=== PATIENT | female | born 1985 | race Caucasian/White ===

== ENCOUNTER 2017-05-09 22:59 | Emergency (ER) | payer OTHER ==
[~2017-05-09] VITALS: Ht 154.9 cm; Wt 68.0 kg
[~2017-05-09 22:59] MED LIST: ADDERALL 20 MG20 MG PO; CLONAZEPAM1 M2 PO; DEXTROAMP-AMPHE20 MG PO; FLUOXETINE HCL60 MG PO; GABAPENTIN400 M2 PO; HYDROXYZINE HCL50 M1 PO; NEURONTIN400 M1 PO; VISTARIL50 M1 PO
--- NOTE | 2017-05-10 01:20 | ED GENERAL ADULT ---
History of Present Illness General Chief Complaint: Syncope and Near-Syncope Stated Complaint: BIBA ?SYNCOPAL EPISODE, ?CYST ON BACK OF NECK Source: patient, old records, friend Exam Limitations: no limitations Vital Signs & Intake/Output Vital Signs & Intake/Output Vital Signs Date Time Temp Pulse Resp B/P B/P Pulse O2 O2 Flow FiO2 Mean Ox Delivery Rate 05/10 0502 98.0 61 20 107/77 98 05/09 2314 97.0 58 18 125/86 97 Room Air ED Intake and Output 05/10 0000 05/09 1200 Intake Total Output Total Balance Patient 150 lb Weight Weight Reported by Patient Measurement Method Allergies Coded Allergies: No Known Allergies (01/04/17) Reconcile Medications Clonazepam 1 MG TABLET 1 TAB PO TID ANXIETY/PANIC ATTACK (Reported) Dextroamphetamine/Amphetamine (Adderall 20 MG Tablet) 20 MG TABLET 1 TAB PO BID ADD (Reported) Dextroamphetamine/Amphetamine (Adderall 20 MG Tablet) 20 MG TABLET 1 TAB PO BID adhd Dextroamphetamine/Amphetamine (Dextroamp-Amphetamin 20 MG Tab) 20 MG TABLET 1 TAB PO BID ADHD Doxycycline Hyclate (Vibramycin) 100 MG CAPSULE 1 CAP PO BID cellulitis Fluoxetine HCl 60 MG TABLET 1 TAB PO QAM MENTAL HEALTH (Reported) Gabapentin 400 MG CAPSULE 1 CAP PO TID NERVE PAIN (Reported) Gabapentin (Neurontin) 400 MG CAPSULE 1 CAP PO TID PRN neuropathy Gabapentin 400 MG CAPSULE 1 CAP PO TID NEUROPATHIC PAIN Hydrocodone/Acetaminophen ([place] 5-325 Tablet) 5 MG-325 MG TABLET 1-2 TAB PO Q4-6 PRN PRN severe pain Hydroxyzine Hydrochloride (Atarax) 50 MG TABLET 1 TAB PO BID PRN anxiety Hydroxyzine Pamoate (Vistaril) 50 MG CAPSULE 1 CAP PO BID ANXIETY Triage Note: PT BIBA FOR ?ABSCESS TO BACK OF HEAD X 1 DAY. Triage Nurses Notes Reviewed? yes Onset: Just prior to arrival Duration: constant, continues in ED Timing: recent history Injury Environment: home Severity: moderate, severe Modifying Factors: Improves With: medication. Worsens With: other (palpation). LMP (ages 10-50): unknown : No Patient currently breastfeeds: No HPI: Prior to admission patient noted lesion to scalp that was painful draining causing her to lose consciousness. She reports having multiple skin lesions/ abscesses. She denies fever chills nausea vomiting diarrhea abdominal pain chest pain shortness of breath headache dysuria bleeding. She is concerned because her father had intranasal abscess that spread to hid brain. Past History Travel History Traveled to [place] past 21 day No Medical History Any Pertinent Medical History? 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 No Review of Systems Review of Systems Constitutional: Reports: no symptoms. EENTM: Reports: no symptoms. Respiratory: Reports: no symptoms. Cardiovascular: Reports: no symptoms. GI: Reports: no symptoms. Genitourinary: Reports: no symptoms. Musculoskeletal: Reports: no symptoms. Skin: Reports: see HPI, rash. Neurological/Psychological: Reports: see HPI. Hematologic/Endocrine: Reports: no symptoms. Immunologic/Allergic: Reports: no symptoms. All Other Systems: Reviewed and Negative Physical Exam Physical Exam General Appearance: well developed/nourished, alert, awake, anxious, moderate distress, obese Head: atraumatic, tenderness, multiple abscesses over scalp the largest 2.5 cm at apex with drainage appearing chronic Eyes: Bilateral: normal appearance, PERRL, EOMI. Ears, Nose, Throat: normal pharynx, normal ENT inspection, hearing grossly normal Neck: normal inspection, supple, full range of motion, no midline tenderness Respiratory: normal breath sounds, chest non-tender, no respiratory distress, quiet respiration, lungs clear Cardiovascular: regular rate/rhythm, normal peripheral pulses, norml femoral pulses equa Peripheral Pulses: 4+ carotid (R), 4+ carotid (L) Gastrointestinal: normal bowel sounds, soft, non-tender, no organomegaly Back: normal inspection, normal range of motion Extremities: normal inspection, normal capillary refill, normal range of motion, no edema Neurologic/Psych: no motor/sensory deficits, awake, alert, oriented x 3, normal gait, normal mood/affect, 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 Skin: normal color, rash Lymphatic: no anterior cervical ortiz Core Measures ACS in differential dx? No CVA/TIA Diagnosis: No Sepsis Present: No Sepsis Focused Exam Completed? No Progress Differential Diagnoses I considered the following diagnoses in my evaluation of the patient: MRSA cavernous sinus thrombosis cellulitis Plan of Care: Orders Procedure Date/time Status TROPONIN LEVEL 05/10 99 Complete HUMAN BETA HCG SCREEN 05/10 99 Complete COMPREHENSIVE METABOLIC PANEL 05/10 99 Complete CBC WITHOUT DIFFERENTIAL 05/10 99 Complete Laboratory Tests 05/10/17 0118: Anion Gap 11, Estimated GFR > 60, BUN/Creatinine Ratio 13.3, Glucose 102 H, Calcium 9.6, Total Bilirubin 0.6, AST 186 H, ALT 343 H, Alkaline Phosphatase 60, Troponin I 0.02, Total Protein 7.7, Albumin 4.1, Globulin 3.6, Albumin/ Globulin Ratio 1.1, Total Beta HCG NEGATIVE, CBC w Diff NO MAN DIFF REQ, RBC 4.98, MCV 87.3, MCH 30.1, RDW 13.1, MPV 6.5 L, Gran % 67.4, Lymphocytes % 22.6, Monocytes % 7.3, Eosinophils % 1.8, Basophils % 0.9, Absolute Granulocytes 7.1 H, Absolute Lymphocytes 2.4, Absolute Monocytes 0.8 H, Absolute Eosinophils 0.2 , Absolute Basophils 0.1, PUBS MCHC 34.5 Diagnostic Imaging: Viewed by Me: CT Scan. Discussed w/RAD: CT Scan. Radiology Impression: Skin thickening with stranding in the subcutis fat and thickening of the underlying scalp soft tissues overlying the left posterior parietal convexity. No rim-enhancing fluid collection. Recommend correlation with any history of trauma. Initial ED EKG: none Departure Departure Time of Disposition: 440 Disposition: HOME OR SELF CARE Condition: Stable Clinical Impression Primary Impression: Cellulitis and abscess of head Referrals: Patient Has No Primary Care Dr (PCP/Family) Departure Forms: Customer Survey General Discharge Information RELEASE- WORK Prescriptions: Current Visit Scripts Doxycycline Hyclate (Vibramycin) 1 CAP PO BID #20 CAP Hydrocodone/Acetaminophen ([place] 5-325 Tablet) 1-2 TAB PO Q4-6 PRN PRN severe pain #20 TAB Critical Care Note Critical Care Note Critical Care Time: non-applicable
[2017-05-10 01:26] LABS: ABSOLUTE BASOPHIL COUNT 0.1 /CUMM (0.0-0.2); ABSOLUTE EOSINOPHIL COUNT 0.2 /CUMM (0.0-0.7); ABSOLUTE GRANULOCYTE CT 7.1 /CUMM (1.4-6.5); ABSOLUTE LYMPH COUNT 2.4 /CUMM (1.2-3.4); ABSOLUTE MONOCYTE COUNT 0.8 /CUMM (0.10-0.60); BASOPHIL % 0.9 % (0.0-2.0); EOSINOPHIL % 1.8 % (0-5); GRANULOCYTE % 67.4 % (42.2-75.2); HEMATOCRIT 43.5 % (37-47); MEAN CORPUSCULAR HGB 30.1 PG (27.0-31.0); MEAN CORPUSCULAR HGB CONC 34.5 G/DL (33.0-37.0); MEAN CORPUSCULAR VOLUME 87.3 FL (81.0-99.0); MEAN PLATELET VOLUME 6.5 FL (7.4-10.4); PLATELET COUNT 289 /CUMM (130-400); RBC DISTRIBUTION WIDTH 13.1 % (11.5-14.5); RED BLOOD CELL CT 4.98 /CUMM (4.20-5.40); WHITE BLOOD CELL COUNT 10.6 /CUMM (4.8-10.8)
--- NOTE | 2017-05-10 03:20 | CT SCAN REPORT ---
EXAMINATION: CT HEAD WITH CONTRAST CLINICAL INFORMATION: Scalp abscess with family history of abscess. COMPARISON: None TECHNIQUE: Contiguous axial imaging was performed from the skull base to vertex following the administration of 95 mL of Optiray 320 intravenous contrast. DLP: 676 mGy-cm FINDINGS: There is no evidence of acute intracranial hemorrhage or territorial infarction. No abnormal mass effect or midline shift is seen. Parekh to white matter differentiation is well preserved. No extra-axial fluid collections are identified. There is no abnormal enhancement. The ventricles are normal in size. There is no abnormal attenuation within the brain parenchyma. No abnormal leptomeningeal or parenchymal enhancement. There is skin thickening with stranding in the subcutaneous fat and thickening of the underlying scalp soft tissues overlying the left posterior parietal convexity. No rim-enhancing fluid collection. Underlying calvarium is unremarkable. The calvarium in general is unremarkable. The mastoid air cells are well-aerated. There is mild mucosal thickening in the left maxillary sinus. The paranasal sinuses are otherwise well-aerated. The dural venous sinuses opacify normally. IMPRESSION: Skin thickening with stranding in the subcutis fat and thickening of the underlying scalp soft tissues overlying the left posterior parietal convexity. No rim-enhancing fluid collection. Recommend correlation with any history of trauma.
[2017-05-10] MEDS ORDERED: VIBRAMYCIN100 MG PO (04:43)
[2017-05-10] MEDS ORDERED: NORCO 5-325 TA1 EACH PO (04:43)
[2017-05-10 05:02] VITALS: BP 107/77
== END 2017-05-10 05:03 ==
LOC: ERH 22:59
PROVIDERS: Emergency Medicine
DX: L03.811 Cellulitis of head [any part, except face] (principal); L02.811 Cutaneous abscess of head [any part, except face]
CPT/HCPCS: 96374; 96375; 96376

== ENCOUNTER 2017-11-14 10:54 | Emergency (ER) | payer OTHER ==
[~2017-11-14] VITALS: Ht 154.9 cm; Wt 72.6 kg
[~2017-11-14 10:54] MED LIST changes: +BACTRIM DS TAB1 EACH PO; +IBUPROFEN800 M1 PO; +NORCO 5-325 TA1 EACH PO; +PERMETHRIN60 GM TOP; +VIBRAMYCIN100 MG PO
[2017-11-14 11:08] VITALS: BP 136/94
--- NOTE | 2017-11-14 11:11 | ED SKIN/ALLERGY COMPLAINT ---
History of Present Illness General Chief Complaint: Skin Rash/ Abcess Stated Complaint: RASH ALL OVER BODY Source: patient, old records Exam Limitations: no limitations Vital Signs & Intake/Output Vital Signs & Intake/Output Vital Signs Date Time Temp Pulse Resp B/P B/P Pulse O2 O2 Flow FiO2 Mean Ox Delivery Rate 11/14 1140 Room Air 11/14 1108 97.7 66 20 136/94 100 Room Air Allergies Coded Allergies: No Known Allergies (01/04/17) Reconcile Medications Buprenorphine HCl/Naloxone HCl (Buprenorphin-Naloxon 8-2 MG Sl) 8 MG-2 MG TAB.SUBL 1.5 TAB SL DAILY MAINTENCE (Reported) Sulfamethoxazole/Trimethoprim (Bactrim Ds Tablet) 800 MG-160 MG TABLET 1 TAB PO BID rash Triage Note: PT C/O ITCHY RASH ALL OVER BODY. MOST HAVE SCABBED UP D/T ITCHING AND HER ANXIETY. Triage Nurses Notes Reviewed? yes Onset: Gradual Duration: day(s): Timing: recent history Severity: moderate Location: extremities, generalized : No Patient currently breastfeeds: No HPI: 32yo female with hx of anxiety presents to ED complaining of generalized rash beginning 3-4 days ago. Patient states she has had similar rash in the past and reports a hx of +MRSA. Patient states she was treated with bactrim for MRSA previously. Patient reports rash is very itchy, she's been itching the rash and has scabbing over the rash. Patient states she has been off her anxiety medications and believes this may be related to her rash, anxiety causes her to itch the rash. She has an appointment coming up with her psychiatrist discuss her anxiety the next few days. Patient denies sick contact, fevers, chills, vomiting. Past History Travel History Traveled to [place] past 21 day No Medical History Any Pertinent Medical History? 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 No Review of Systems Review of Systems Constitutional: Reports: no symptoms. EENTM: Reports: no symptoms. Respiratory: Reports: no symptoms. Cardiovascular: Reports: no symptoms. GI: Reports: no symptoms. Genitourinary: Reports: no symptoms. Musculoskeletal: Reports: no symptoms. Skin: Reports: see HPI. Neurological/Psychological: Reports: see HPI. Hematologic/Endocrine: Reports: no symptoms. Immunologic/Allergic: Reports: no symptoms. All Other Systems: Reviewed and Negative Physical Exam Physical Exam General Appearance: well developed/nourished, no apparent distress, alert, awake Head: atraumatic, normal appearance Eyes: Bilateral: normal appearance. Ears, Nose, Throat: hearing grossly normal Neck: normal inspection, supple, full range of motion Respiratory: no respiratory distress Back: normal inspection, normal range of motion Extremities: normal inspection, normal range of motion Neurologic/Psych: awake, alert, oriented x 3 Skin: erythematous papular rash to bilateral extremities and chest with crusting / scabs present Progress Differential Diagnosis: abscess/cellulitis, allergic reaction, contact dermatitis, drug reaction, urticaria Plan of Care: Patient was seen here at [facility] in May for a similar rash and complaint. At that time she was treated with Bactrim and reports she had resolution of the rash. Patient's rash is not consistent with abscess or cellulitis however patient does have history of previous MRSA infection. She has been checking this rash resulting in scabs and open skin. Will initiate Bactrim and outpatient follow-up with her psychiatrist as scheduled. The patient agrees with plan of care. Departure Departure Disposition: HOME OR SELF CARE Condition: Stable Clinical Impression Primary Impression: Rash Referrals: Patient Has No Primary Care Dr (PCP/Family) Additional Instructions: Take Bactrim antibiotics as prescribed. Begin Benadryl 25 mg every 6 hours for itching. Follow-up with your psychiatrist tomorrow for further evaluation of your anxiety. Return if worsening symptoms or concerns. Please note that there might be incidental findings in your evaluation that are unrelated to the current emergency department visit. Please notify your primary care doctor about this emergency department visit in order to obtain and review all of the testing performed so that these incidental findings can be monitored as needed. If you had an x-ray performed, please understand that some fractures may not be seen on the initial set of x-rays. If your symptoms persist you might need a repeat set of x-rays to check for such a fracture. If you had a laceration evaluated, please understand that foreign bodies such as glass or wood may not be visible to the naked eye or on plain x-rays. If the wound becomes red, swollen, increasingly more painful or if there is any drainage from the wound, please have it reevaluated by a physician for the possibility of a retained foreign body. If you're unable to follow up as outlined in the discharge instructions please return to the emergency department. Thank you for choosing the [facility] for your care. It was a pleasure to serve you today. Departure Forms: Customer Survey General Discharge Information Prescriptions: Current Visit Scripts Sulfamethoxazole/Trimethoprim (Bactrim Ds Tablet) 1 TAB PO BID #14 TAB
[2017-11-14] MEDS ORDERED: BUPRENORPHIN-N1 EACH SL (11:23)
[2017-11-14] MEDS ORDERED: BACTRIM DS TAB1 EACH PO (11:35)
== END 2017-11-14 11:42 ==
LOC: ERH 10:54
DX: R21 Rash and other nonspecific skin eruption (principal)